=== PATIENT | female | born 1940 | race Caucasian/White ===

== ENCOUNTER → 2016-09-08 | Outpatient (CLI) | payer OTHER ==
--- NOTE | 2016-09-08 11:05 | MR ---
MRI of the Lumbar Spine (Without Contrast) Clinical Indications: Low back pain. Bilateral lower extremity numbness. Bilateral hip pain. Technique: Sagittal and axial T1 and T2 MR sequences of the lumbar spine without contrast. Findings: There is 36 degrees of dextroscoliosis from L1 through L5. T12-L1: Diffuse annular bulging, without discrete disk prolapse or neural impingement. L1-L2: Disk desiccation and intervertebral disk height loss with mild diffuse annular bulging, withou t discrete disk prolapse. L2-L3: Marked intervertebral disk height loss. No disk herniation. L3-L4: Disk desiccation and diffuse annular bulging, with secondary mild acquired central canal steno sis. The left neural foramen is moderately stenotic. The right neural foramen is patent. L4-L5: Disk desiccation and annular bulging, extending into the foramina bilaterally. The left neural foramen is moderately stenotic. The right neural foramen is severely stenotic, with marked effacemen t of the perineural fat surrounding the exiting right L4 nerve root. L5-S1: Disk desiccation and annular bulging, without discrete disk prolapse or neural impingement. Mi ld bilateral neural foraminal stenosis. Marrow signal intensity is benign in features. Impression: 1. Lumbar dextroscoliosis, 36 degrees. 2. Multilevel degenerative disk disease and foraminal stenosis. There is severe right neural foramina l stenosis at L4-L5 and marked left neural foraminal stenosis at L3-L4. 3. Other level findings as above.
== END ==
LOC: FIMAGING 08:51
PROVIDERS: ATTEND Internal Medicine Rheumatology
DX: M25.551 Pain in right hip (principal); M54.5 Low back pain; R20.0 Anesthesia of skin; M51.36 Other intervertebral disc degeneration, lumbar region

== ENCOUNTER → 2017-04-24 | Outpatient (CLI) | payer OTHER | LOC: GIMAGING 11:57 | PROVIDERS: ATTEND Registered Nurse | DX: M25.551 Pain in right hip (principal); M79.671 Pain in right foot; W19.XXXA Unspecified fall, initial encounter; R93.6 Abnormal findings on diagnostic imaging of limbs | CPT/HCPCS: 73502-PO; 73630-PO ==